=== PATIENT | male | born 1950 | race Caucasian/White ===

== ENCOUNTER → 2016-04-19 | Outpatient (CLI) | payer OTHER ==
[~2016-04-19] MED LIST: ASPI325T39 PO; ASPI81TA28 PO; CHOL1000 PO; CIME-56; CIPR-255 PO; CPR500; FESO8TAB PO; FINA5TAB PO; FLM4 PO; FLUO10CA48 PO; HYDR1SOL10 PO; KETO10TA; LOSA50TA6 PO; MELO7.5T5 PO; METO100T14; METO25TA56 PO; METO50TA16; METR-163; MULT-506 PO; NTRGSL/4 SL; OMEG10007 PO; OXYC-57 PO; SIMV20TA2; SIMV20TA2 PO; VITAMIN B12 PO; [UNRECOGNIZED DRUG - CODE] PO
--- NOTE | 2016-04-19 14:48 | DIAGNOSTIC IMAGING REPORT ---
KUB CLINICAL HISTORY: N20.0 [id number] COMPARISON STUDY: 11/18/2005 FINDINGS: There is no pathologic bowel dilatation. There is a 3 mm calcification projected over the lower pole the left kidney suspicious for a calculus. There is a mild lumbar scoliosis. Degenerative changes are present within the spine. IMPRESSION: Suspected 3 mm left renal calculus Electronically signed by: Marcos Llamas M.D. 04/19/2016 2:47 PM Dictated Date/Time: 04/19/2016 2:46 PM
== END | disposition home or self-care (01) ==
LOC: C.RADBC 13:54
PROVIDERS: ATTEND Nurse Practitioner Family
DX: N20.0 Calculus of kidney (principal)

== ENCOUNTER 2016-05-07 05:01 | Observation (INO) | payer OTHER ==
[2016-05-04 15:04] VITALS: BMI 29.0
--- NOTE | 2016-05-04 15:41 | PAT Medication Instructions ---
Service Date May 04, 2016. Current Home Medication List Aspirin (Aspirin Ec), 325 MG PO QAM Cholecalciferol (Vitamin D3), 1 TAB PO BID Fesoterodine Fumarate (Toviaz), 1 TAB PO QAM Finasteride (Proscar), 5 MG PO QPM Fish Oil ([place]-3), 1,000 MG PO BID Losartan Potassium (Cozaar), 50 MG PO QAM Meloxicam (Mobic), 7.5 MG PO BID Metoprolol Tartrate (Lopressor) (Lopressor), 12.5 MG PO BID Multivitamin (Multivitamin), 1 TAB PO QPM Nitroglycerin (Nitrostat), 0.4 MG SL UD PRN for RN Simvastatin (Zocor), 20 MG PO QAM [Vitamin B12], 1 TAB PO QPM Medication Instructions For Your Scheduled Surgery Aspirin (Aspirin Ec), 325 MG PO QAM (Check with surgeon/stem processing machine operator for instructions) Meloxicam (Mobic), 7.5 MG PO BID (check with surgeon for instructions) - Hold the following medications starting 05/04/16: Fish Oil ([place]-3), 1,000 MG PO BID - Hold the following medications the morning of surgery: Losartan Potassium (Cozaar), 50 MG PO QAM Cholecalciferol (Vitamin D3), 1 TAB PO BID Fesoterodine Fumarate (Toviaz), 1 TAB PO QAM - Take the following medications the morning of surgery with a sip of water: Simvastatin (Zocor), 20 MG PO QAM Nitroglycerin (Nitrostat), 0.4 MG SL UD PRN for RN Metoprolol Tartrate (Lopressor) (Lopressor), 12.5 MG PO BID - Take the following medications as scheduled the night before surgery: [Vitamin B12], 1 TAB PO QPM Nitroglycerin (Nitrostat), 0.4 MG SL UD PRN for RN Multivitamin (Multivitamin), 1 TAB PO QPM Metoprolol Tartrate (Lopressor) (Lopressor), 12.5 MG PO BID Finasteride (Proscar), 5 MG PO QPM Cholecalciferol (Vitamin D3), 1 TAB PO BID If you have any questions please call us at [phone] (Maye Mayer PA-C ) or [phone] or [phone]
[2016-05-04 16:08] LABS: BASO % 1.2 %; BASO ABS # 0.07 K/uL (0-0.2); COMPLETE YES; EOS % 9.7 %; HEMATOCRIT 41.6 % (42-52); IG% 0.2 %; LYMPH % 34.2 %; LYMPH ABS # 2.05 K/uL (1.2-3.4); MEAN CELL VOLUME 89.3 fL (80-100); MEAN CORPUSCULAR HEMOGLOBIN 30.5 pg (25-34); MEAN CORPUSCULAR HGB CONC 34.1 g/dl (32-36); MEAN PLATELET VOLUME 10.1 fL (7.4-10.4); MONO % 9.2 %; NEUT % 45.5 %; PLATELET COUNT 168 K/uL (130-400); RED BLOOD COUNT 4.66 M/uL (4.7-6.1); WHITE BLOOD COUNT 5.99 K/uL (4.8-10.8)
[2016-05-04 16:25] LABS: BUN/CREATININE RATIO 13.8 (10-20); CALCIUM 8.7 mg/dl (8.5-10.1); CREATININE 0.97 mg/dl (0.60-1.40); POTASSIUM 4.6 mmol/L (3.5-5.1)
--- NOTE | 2016-05-06 21:23 | HISTORY & PHYSICAL EXAMINATION ---
DATE OF ADMISSION: 05/07/2016 DIAGNOSIS: Septal deviation and obstructive sleep apnea. HISTORY OF PRESENT ILLNESS: This 66-year-old gentleman presented with history of severe sleep apnea. His respiratory distress index was 39.4. His lowest oxygen saturation was 87%. He was unable to wear CPAP because of nasal obstruction. PAST MEDICAL HISTORY: Medical problems; heart attack in May 2010, hypertension, hypercholesterolemia and sleep apnea. PREVIOUS SURGERIES: Back surgery and cardiac stents in 2010. MEDICATIONS: Metoprolol, simvastatin and losartan. Aspirin, which is being held. ALLERGIES: None known. FAMILY HISTORY: Negative. SOCIAL HISTORY: Negative. REVIEW OF SYSTEMS: Otherwise negative. PHYSICAL EXAMINATION: GENERAL: WNWD, male, 6 feet 1 inch, 225 pounds. HEAD: Normocephalic. EYES: Normal. EARS: Tympanic membranes intact. NOSE: Nasal passages; septal deviation to the right with turbinate hypertrophy. Pharynx, 3+ tonsillar hypertrophy. NECK: Supple. HEART: RRR. LUNGS: Clear. ABDOMEN: Soft. GENITOURINARY: Deferred. EXTREMITIES: Full range of motion. IMPRESSION: Septal deviation and obstructive sleep apnea. PLAN: Septoplasty with adenotonsillectomy, uvulopalatopharyngoplasty and somnoplasty of the tongue base.
[~2016-05-07] VITALS: Ht 185.4 cm; Wt 100.2 kg
[2016-05-07] VITALS (10 sets, daily range): BP systolic 156–201; BP diastolic 69–89; PULSE 43–63; TEMP 36.3–36.8; O2SAT 93–98; Ht 185.4 cm; Wt 100.2 kg
[~2016-05-07 05:01] MED LIST changes: -ASPI81TA28 PO; -CIME-56; -CIPR-255 PO; -CPR500; -FLM4 PO; -FLUO10CA48 PO; -HYDR1SOL10 PO; -KETO10TA; -METO100T14; -METO50TA16; -METR-163; -OXYC-57 PO; -SIMV20TA2; -[UNRECOGNIZED DRUG - CODE] PO
[2016-05-07] MEDS ORDERED: LACTATED RINGER'S 1000ML IV SCH (06:00)
[2016-05-07] MEDS ORDERED: CEFAZOLIN 2000 MG/60 ML D5W IV SCH (06:00)
[2016-05-07] MEDS ORDERED: LIDOCAINE HCL 2% 2 ML VIAL (20MG/ML) ONE (06:54)
[2016-05-07] MEDS ORDERED: MIDAZOLAM HCL 1 MG/ML 2ML VIAL ONE (06:54)
[2016-05-07] MEDS ORDERED: DEXAMETHASONE SOD INJ 4 MG/ML VIAL ONE (06:54)
[2016-05-07] MEDS ORDERED: FENTANYL CITRATE INJ 50 MCG/1 ML 2 ML VIAL ONE (06:54)
[2016-05-07] MEDS ORDERED: PROPOFOL IV EMULSION 10 MG/ML 20 ML VIAL IV ONE (06:54)
[2016-05-07] MEDS ORDERED: ONDANSETRON INJ 2 MG/ML 2 ML VIAL ONE (06:54)
--- NOTE | 2016-05-07 07:00 | History & Physical Bridge Note ---
H&P Re-Evaluation Bridge Note: I have examined the patient, reviewed the History & Physical and in the interval since the performance of the History & Physical I have noted the following changes of clinical significance: No changes noted
[2016-05-07] MEDS ORDERED: GLYCOPYRROLATE INJ 0.2 MG/ML VIAL ONE (07:52)
[2016-05-07] MEDS ORDERED: ROCURONIUM BROMIDE 10 MG/ML 5 ML VIAL ONE (07:52)
[2016-05-07] MEDS ORDERED: LARYING-O-JET KIT (LTA) EXT ONE ×2 (07:52)
[2016-05-07] MEDS ORDERED: NEOSTIGMINE METHYLSULFATE 5 MG/5 ML SYR ONE (07:52)
[2016-05-07] MEDS ORDERED: ARTIFICIAL TEARS OP OINT 3.5 GM TUBE ONE (07:52)
[2016-05-07] MEDS ORDERED: MUPIROCIN 2% OINT 22 GM TUBE TOP ONE (08:06)
[2016-05-07] MEDS ORDERED: GELATIN SPONGE 12-7MM TOP ONE (08:06)
[2016-05-07] MEDS ORDERED: MIX: 4% LIDOCAINE 4ML W/1 ML EPI 1:1000 TOP ONE (08:08)
[2016-05-07] MEDS ORDERED: BUPIVACAINE/EPINEPHRINE 0.5% MPF 1:200,000 30 ML VIAL INJ ONE (08:31)
[2016-05-07] MEDS ORDERED: HYDROCODONE/APAP 2.5MG/108MG ELIX 5 ML UDP PO PRN (09:00)
[2016-05-07] MEDS ORDERED: ONDANSETRON INJ 2 MG/ML 2 ML VIAL IV PRN ×3 (09:00→09:30)
[2016-05-07] MEDS ORDERED: MoRPHine SULFATE 2 MG/ML CARP IV PRN (09:00)
[2016-05-07] MEDS ORDERED: HydrALAZINE HCL 20 MG/ML VIAL ONE (09:22)
[2016-05-07] MEDS ORDERED: HydrALAZINE HCL 20 MG/ML VIAL IV. STA (09:25)
[2016-05-07] MEDS ORDERED: EpHEDrine SULFATE INJ 50 MG/ML AMP IV PRN (09:30)
[2016-05-07] MEDS ORDERED: FENTANYL CITRATE INJ 50 MCG/1 ML 2 ML VIAL IV PRN (09:30)
[2016-05-07] MEDS ORDERED: ATROPINE SULFATE 0.1 MG/ML 5ML SYR IV PRN (09:30)
--- NOTE | 2016-05-07 09:31 | OPERATIVE REPORT ---
DATE OF OPERATION: 05/07/2016 PREOPERATIVE DIAGNOSES: Obstructive sleep apnea, septal deviation. POSTOPERATIVE DIAGNOSES: Same. PROCEDURE: Septoplasty with tonsillectomy and uvulopalatopharyngoplasty and radiofrequency volume reduction of the tongue base. SURGEON: Dr. Paulson. ANESTHESIA: General endotracheal. COMPLICATIONS: None. BLOOD LOSS: 30 mL HISTORY: This 66-year-old gentleman presented with significant obstructive sleep apnea with RDI of 39.4, lowest oxygen saturation of 87%. He has difficulty wearing CPAP because of the nasal obstruction. He also has significant adenotonsillar hypertrophy and requested definitive treatment. DESCRIPTION OF PROCEDURE: The patient was brought to the operating room and placed in supine position. General endotracheal anesthesia was induced. Prepped and draped in the usual sterile manner. The radiofrequency volume reduction of the tongue base was performed with [employer] machine creating 7 double prong lesions in the rapid lesion mode with the setting at 600 joules. Seven lesions were created across the tongue base posteriorly. The nose was decongested using topical cottonoids with a solution of 4 mL of 4% Xylocaine mixed with 1 mL of epinephrine. Injection of 0.5% Sensorcaine with 1:200,000 strength epinephrine was also used. The left hemitransfixion incision was made and mucoperichondrium was elevated off the left side of the septum. Posteriorly, the cartilage was from the perpendicular plate of ethmoid and inferiorly from the vomer maxillary crest. Bilateral inferior tunnels were elevated and then bilateral posterior tunnels were elevated, isolating a large bony cartilaginous spur inferiorly which was trimmed using 15 blade and the Tejinder-Garcia rongeurs. There was also a large bony spur projecting to the left posteriorly. This was removed using the Tejinder-Gracia rongeurs and the Anthony forceps superiorly. The deviated portion of the perpendicular plate of the ethmoid was removed in small pieces using the Tejinder-Garcia rongeur. The caudal end of the septum also had to be straightened because there was an acute angulation to the right. This was straightened using the cartilage carving technique. The septum was closed using continuous mattress suture of 4-0 plain gut. Anterior packing of Gelfoam was placed on the left side. The mouth gag was placed. Peritonsillar area injected with 0.5% Sensorcaine with 1:200,000 strength epinephrine. Tonsillectomies were performed using the plasma knife. Inspection of the adenoid showed minimal adenoid tissue. Uvulopalatoplasty was performed using #12 blade, resecting a portion of the soft palate along with the anterior surface of the uvula, trimming the uvula to its tip but preserving the tip of the uvula. The uvula was sewn up on itself. Palatoglossal flap was created by a V cut using the Metzenbaum scissors superiorly. The palatopharyngeal fold was swung up superiorly into the V cut. All the mucosal edges were closed using 2-0 chromic sutures continuously interlocking manner on the left side and then the same suture on the right side. This was tied up at the uvula which was sewn up to the soft palate in the midline. The pharynx was irrigated clean with saline. The patient tolerated the procedure well and was taken to recovery area in satisfactory condition. I attest to the content of the Intraoperative Record and any orders documented therein. Any exceptions are noted below. HAYLEY
--- NOTE | 2016-05-07 09:54 | Anesthesiology Progress Note ---
Anesthesia Post Op Note Date & Time May 07, 2016 at 09:53 Vital Signs Pain Intensity: 3 Vital Signs Past 12 Hours Date Time Temp Pulse Resp B/P Pulse Ox O2 Delivery O2 Flow Rate FiO2 05/07/16 09:33 142/71 05/07/16 09:32 42 9 96 05/07/16 09:32 43 9 05/07/16 09:28 153/78 05/07/16 09:27 41 13 05/07/16 09:27 41 13 97 05/07/16 09:24 160/80 05/07/16 09:22 35 15 05/07/16 09:22 35 15 97 05/07/16 09:18 193/84 05/07/16 09:17 41 13 176/89 98 05/07/16 09:17 39 13 05/07/16 09:13 207/96 05/07/16 09:12 43 14 05/07/16 09:12 43 14 191/91 100 05/07/16 09:02 36.6 40 16 191/91 100 Mask 10 05/07/16 09:00 36.6 48 16 183/90 100 Mask 10 05/07/16 05:55 36.6 43 18 201/88 98 Room Air Notes Mental Status: alert / awake / arousable, participated in evaluation Pt Amnestic to Procedure: Yes Nausea / Vomiting: adequately controlled Pain: adequately controlled Airway Patency, RR, SpO2: stable & adequate BP & HR: stable & adequate Hydration State: stable & adequate Anesthetic Complications: no major complications apparent Pt did receive one dose of hydralazine 10mg IV in pacu for BP 190s/90s. He was asymptomatic with this blood pressure. On dispo from recovery his BP was 150s/ 80s.
[2016-05-07] MEDS ORDERED: IV FLUIDS COMPLETED PRN (10:00)
[2016-05-07] MEDS: ACETAMINOPHEN SOLN 650MG/20.3 ML UDC PO PRN (10:34)
[2016-05-07] MEDS: D5W AND 1/2NSS + 20MEQ KCL 1,000 ML IV SCH ×2 (13:09→22:39)
[2016-05-07] MEDS: ACETAMINOPHEN/HYDROCODONE ELIX 15 ML/CUP UDP PO PRN (13:12)
[2016-05-07] MEDS: CEFAZOLIN IV 1,000 MG in DEXTROSE 5% 50ML 50 ML IV SCH ×2 (14:32→22:39)
[2016-05-07] MEDS: MoRPHine SULFATE 4 MG/ML 1 ML CARP\\VIAL IV PRN ×2 (15:46→20:45)
[2016-05-08 03:38] VITALS: BP 152/73; PULSE 57; TEMP 36.6; O2SAT 95
[2016-05-08] MEDS: MoRPHine SULFATE 4 MG/ML 1 ML CARP\\VIAL IV PRN (06:20)
[2016-05-08] MEDS: CEFAZOLIN IV 1,000 MG in DEXTROSE 5% 50ML 50 ML IV SCH (06:20)
[2016-05-08] MEDS: ACETAMINOPHEN SOLN 650MG/20.3 ML UDC PO PRN (06:20)
[2016-05-08 07:03] VITALS: BP_SYST 152; BP_SYST 160; BP_DIAS 72; BP_DIAS 73; PULSE 52; TEMP 36.7; O2SAT 95
[2016-05-08] MEDS: D5W AND 1/2NSS + 20MEQ KCL 1,000 ML IV SCH (07:41)
[2016-05-08 07:52] VITALS: BP 157/70; PULSE 60; TEMP 37.1; O2SAT 93
[2016-05-08 07:57] VITALS: O2SAT 93
[2016-05-08] MEDS ORDERED: HYDR1SOL10 PO (09:21)
[2016-05-08] MEDS ORDERED: OXYC-57 PO (09:21)
[2016-05-08] MEDS ORDERED: [UNRECOGNIZED DRUG - CODE] PO (09:21)
--- NOTE | 2016-05-08 09:25 | Discharge Instructions ---
Discharge Instructions Admission Reason for Admission: Sleep Apnea Discharge Discharge Diagnosis / Problem: same Discharge Goals Goal(s): Improve function Activity Recommendations Activity Limitations: per Instructions/Follow-up section Lifting Limitations: gradually increase as tolerated Exercise/Sports Limitations: as tolerated May Resume Sexual Activity: when tolerated Shower/Bathe: no limitations Driving or Machine Use: resume 3 days after discharge do not drive on narcotic pain meds . Instructions / Follow-Up Instructions / Follow-Up ACTIVITY RECOMMENDATIONS: * During the first few days, activities should be limited. * Stay indoors for several days. * After 48 hours, activity can gradually be increased to normal activity. RETURN TO SCHOOL/WORK: * Return to school or work in one week. * No physical education for two weeks. OVER THE COUNTER MEDICATIONS: * You may use Tylenol * Avoid aspirin or aspirin containing products, e.g. as they may increase bleeding. SPECIAL CARE INSTRUCTIONS: * Avoid coughing or clearing the throat. * Do not use a straw. * A sore throat is expected frequently accompanied by pain radiating to the ears. This is normal. * Expect bad breath until "scabs" are healed. * Notify the doctor if bleeding occurs, vomiting, temperature greater than 101 degrees Fahrenheit. Call or cell phone: . * If bleeding occurs, it is usually in the first 24 hours or after the 5th day. If unable to reach the doctor, go to the nearest Emergency Department. Special Diet: * Fluids are very important and should be encouraged to maintain adequate hydration. * To maintain nutrition, eat soft foods and after 48 hours the consistency of foods can be increased. Examples are jello, soup, pasta, ice cream and mashed foods. FOLLOW UP VISIT: Follow-up visit with Dr. Paulson in 2 weeks. Please call to schedule if not already scheduled.ACTIVITY RECOMMENDATIONS: * Being up and around is good, but no strenuous activity, heavy lifting or physical exertion for one week. * Keep your head elevated 30 degrees when lying down or sleeping. OVER THE COUNTER MEDICATIONS: * You may use Tylenol * Avoid aspirin or aspirin containing products, e.g. as they may increase bleeding. SPECIAL CARE INSTRUCTIONS: * Expect to have bloody drainage from your nose and/or down your throat for one to three days. Change drip pad as needed. * Begin irrigating your nose with saline solution today, at least six to ten times per day and sniff back to help remove old clots or crust. * You may experience nasal and facial congestion, pain and pressure, this is normal. * Please call with any significant and/or progressive pain, redness, swelling around the eyes, visual changes, fever of 101.5 degrees F, active bleeding or any problems or concerns. * If active bleeding occurs, spray the nose three times at one minute intervals with Afrin spray and call or cell phone: . If unable to reach the doctor, go to the nearest Emergency Department. Special Diet: * Avoid extremely hot fluids. FOLLOW UP VISIT: Follow-up Visit with Dr. Paulson If not already scheduled, please call to schedule. Current Hospital Diet Patient's current hospital diet: Full Liquid Diet Discharge Diet Recommended Diet: Regular Diet Diet Texture: Mechanical Soft (ground) Procedures Procedures Performed: Septoplasty, Bilateral Tonsillectomy, Uvulopalatalpharyngoplasty, Somnoplasty of Tongue Pending Studies Studies pending at discharge: no Medical Emergencies . Who to Call and When: Medical Emergencies: If at any time you feel your situation is an emergency, please call 911 immediately. . Non-Emergent Contact Non-Emergency issues call your: Primary Care Provider . "Provider Documentation" section prepared by Antonieta Paulson. VTE Core Measure Inpt VTE Proph given/why not?: [facility] [place] Drug Monitoring Program Search Results: no issues identified
[2016-05-08 09:33] VITALS: BP 157/70; PULSE 60; TEMP 37.1; O2SAT 93
[2016-05-08] MEDS: ACETAMINOPHEN/HYDROCODONE ELIX 15 ML/CUP UDP PO PRN (10:30)
[2016-05-08 10:52] VITALS: BP 149/78; PULSE 52; TEMP 36.4; O2SAT 94
--- NOTE | 2016-05-17 12:53 | DISCHARGE SUMMARY ---
DIAGNOSIS: Obstructive sleep apnea. HISTORY OF PRESENT ILLNESS: A 66-year-old gentleman with significant sleep apnea, unable to tolerate CPAP, requested definitive treatment. HOSPITAL COURSE: The patient was admitted and taken to the operating room on 05/07, where he underwent septoplasty and then tonsillectomy and also uvulopalatopharyngoplasty. He also had radiofrequency volume reduction of the tongue base without complications. He was observed in the recovery room and then transferred to the floor for observation. Postoperatively, the patient did well with minimal swelling and was able to breathe through his nose. He was discharged on 05/08 with instructions and also instructed to return for followup in my office in 2 weeks.
[2016-09-08] MEDS ORDERED: VITAMIN B12 PO (12:37)
[2016-09-08] MEDS ORDERED: FLM4 PO (12:37)
[2016-09-08] MEDS ORDERED: FLUO10CA48 PO (16:49)
[2016-09-24] MEDS ORDERED: CIPR-255 PO (08:29)
== END 2016-05-08 11:35 | disposition home or self-care (01) ==
LOC: ENRESERVTM → ENRESERVDT → C.ACU 05:01 → C.MSN 08:59
PROVIDERS: ADMIT Otolaryngology; ATTEND Otolaryngology
DX: G47.33 Obstructive sleep apnea (adult) (pediatric) (principal); J34.2 Deviated nasal septum; I10 Essential (primary) hypertension; E78.00 Pure hypercholesterolemia, unspecified; I25.2 Old myocardial infarction; Z79.82 Long term (current) use of aspirin

== ENCOUNTER 2016-09-23 06:54 | Observation (INO) | payer OTHER ==
[2016-09-08 12:41] VITALS: BMI 29.0
--- NOTE | 2016-09-08 13:18 | PAT Medication Instructions ---
Service Date September 08, 2016. Current Home Medication List Aspirin (Aspirin Ec), 325 MG PO QAM Cholecalciferol (Vitamin D3), 1 TAB PO QAM Finasteride (Proscar), 5 MG PO QPM Fish Oil ([place]-3), 1,000 MG PO BID Losartan Potassium (Cozaar), 50 MG PO QAM Meloxicam (Mobic), 7.5 MG PO QPM Metoprolol Tartrate (Lopressor) (Lopressor), 12.5 MG PO BID Multivitamin (Multivitamin), 1 TAB PO QPM Nitroglycerin (Nitrostat), 0.4 MG SL UD PRN for RN Simvastatin (Zocor), 20 MG PO QAM Tamsulosin HCl (Tamsulosin HCl), 0.4 MG PO QPM [Vitamin B12], 1 TAB PO QPM Medication Instructions For Your Scheduled Surgery - Check with surgeon/prescribing physician for instructions: Aspirin (Aspirin Ec), 325 MG PO QAM - Check with surgeon for instructions: Meloxicam (Mobic), 7.5 MG PO QPM - Hold the following medications 2 weeks prior to surgery: Fish Oil ([place]-3), 1,000 MG PO BID - Hold the following medications the morning of surgery: Multivitamin (Multivitamin), 1 TAB PO QPM Losartan Potassium (Cozaar), 50 MG PO QAM Cholecalciferol (Vitamin D3), 1 TAB PO QAM - Take the following medications the morning of surgery with a sip of water: Simvastatin (Zocor), 20 MG PO QAM Metoprolol Tartrate (Lopressor) (Lopressor), 12.5 MG PO BID Nitroglycerin (Nitrostat), 0.4 MG SL UD PRN for RN (if needed) - Take the following medications as scheduled the night before surgery: [Vitamin B12], 1 TAB PO QPM Tamsulosin HCl (Tamsulosin HCl), 0.4 MG PO QPM Metoprolol Tartrate (Lopressor) (Lopressor), 12.5 MG PO BID Finasteride (Proscar), 5 MG PO QPM Nitroglycerin (Nitrostat), 0.4 MG SL UD PRN for RN (if needed) If you have any questions please call us at [phone] or [phone] or [phone]
[2016-09-08 13:20] LABS: URINE APPEARANCE CLEAR (CLEAR); URINE BILIRUBIN NEG (NEG); URINE NITRITE NEG (NEG); URINE PH 5.5 (4.5-7.5); URINE SPECIFIC GRAVITY 1.018 (1.000-1.030); UROBILINOGEN NEG (NEG)
[2016-09-08 13:40] LABS: MANUAL MICROSCOPIC REQUIRED? NO; REVIEW REQ? NO
[2016-09-08 13:42] LABS: URINE COLOR YELLOW
[2016-09-08 13:51] LABS: BASO % 0.3 %; BASO ABS # 0.02 K/uL (0-0.2); COMPLETE YES; EOS % 4.5 %; HEMATOCRIT 37.4 % (42-52); IG% 0.2 %; LYMPH % 32.5 %; LYMPH ABS # 1.88 K/uL (1.2-3.4); MEAN CELL VOLUME 92.8 fL (80-100); MEAN CORPUSCULAR HGB CONC 33.4 g/dl (32-36); MEAN PLATELET VOLUME 10.1 fL (7.4-10.4); MONO % 9.3 %; NEUT % 53.2 %; PLATELET COUNT 165 K/uL (130-400); RED BLOOD COUNT 4.03 M/uL (4.7-6.1); WHITE BLOOD COUNT 5.79 K/uL (4.8-10.8)
[2016-09-08 14:47] LABS: BUN/CREATININE RATIO 10.2 (10-20); CALCIUM 8.3 mg/dl (8.5-10.1); CREATININE 0.94 mg/dl (0.60-1.40); POTASSIUM 4.1 mmol/L (3.5-5.1)
[~2016-09-23] VITALS: Ht 185.4 cm; Wt 99.4 kg
[2016-09-23] VITALS (12 sets, daily range): BP systolic 142–171; BP diastolic 66–84; PULSE 44–62; TEMP 36.4–36.8; O2SAT 92–98; Ht 185.4 cm; Wt 99.4 kg
[~2016-09-23 06:54] MED LIST changes: +CIPROFLOXACIN / D5W 400 MG IV SCH; -FESO8TAB PO; +FLM4 PO; +FLUO10CA48 PO; +LACTATED RINGER'S 1000ML 1,000 ML IV SCH
[2016-09-23] MEDS ORDERED: ASPI81TA28 PO (07:18)
[2016-09-23] MEDS ORDERED: MIDAZOLAM HCL 1 MG/ML 2ML VIAL ONE (07:54)
[2016-09-23] MEDS ORDERED: ONDANSETRON INJ 2 MG/ML 2 ML VIAL ONE (07:54)
[2016-09-23] MEDS ORDERED: LIDOCAINE HCL 2% 2 ML VIAL (20MG/ML) ONE (07:54)
[2016-09-23] MEDS ORDERED: DEXAMETHASONE SOD INJ 4 MG/ML VIAL ONE (07:54)
[2016-09-23] MEDS ORDERED: FENTANYL CITRATE INJ 50 MCG/1 ML 2 ML VIAL ONE (07:54)
[2016-09-23] MEDS ORDERED: PROPOFOL IV EMULSION 10 MG/ML 20 ML VIAL IV ONE (07:54)
[2016-09-23] MEDS ORDERED: MoRPHine SULFATE 2 MG/ML CARP ONE ×2 (09:14→09:15)
--- NOTE | 2016-09-23 09:37 | [facility] Post Operative Brief Note ---
Immediate Operative Summary Operative Date Sep 23, 2016. Pre-Operative Diagnosis Benign Prostactic Hyperplasia with Obstruction Post-Operative Diagnosis Benign Prostactic Hyperplasia with Obstruction Procedure(s) Performed Cystoscopy; TURP Surgeon Dr. Anitra Palafox Learning Designer Surgeon(s) none Estimated Blood Loss 5 cc Findings Bilobar hypertrophy with a high median bar, but no pedunculated median lobe. Specimens none per surgeon Drains [id number] guerra Anesthesia Gen Complication(s) None Disposition Recovery Room / PACU (stable)
[2016-09-23] MEDS ORDERED: ACETAMINOPHEN/CODEINE 300/30MG TAB PO PRN (09:45)
[2016-09-23] MEDS ORDERED: ONDANSETRON INJ 2 MG/ML 2 ML VIAL IV PRN ×2 (09:45→10:00)
[2016-09-23] MEDS ORDERED: ACETAMINOPHEN 325 MG TAB PO PRN (09:45)
[2016-09-23] MEDS ORDERED: NITROGLYCERIN 0.4 MG SL PER TAB CHARGE SL PRN (09:45)
[2016-09-23] MEDS ORDERED: PROMETHAZINE HCL INJ 12.5 MG in SODIUM CHLORIDE 0.9% 50ML 50 ML IV PRN (10:00)
[2016-09-23] MEDS ORDERED: EpHEDrine SULFATE INJ 50 MG/ML AMP IV PRN (10:00)
[2016-09-23] MEDS ORDERED: NALOXONE HCL 0.4 MG/1 ML VIAL/CARP IV PRN (10:00)
[2016-09-23] MEDS ORDERED: LABETALOL HCL IV 5 MG/ML 20ML IV PRN (10:00)
[2016-09-23] MEDS ORDERED: FLUMAZENIL 0.1 MG/1 ML 10 ML VIAL IV PRN (10:00)
[2016-09-23] MEDS ORDERED: ATROPINE SULFATE 0.1 MG/ML 5ML SYR IV PRN (10:00)
[2016-09-23] MEDS ORDERED: FENTANYL CITRATE INJ 50 MCG/1 ML 2 ML VIAL IV PRN (10:00)
--- NOTE | 2016-09-23 10:19 | Anesthesiology Progress Note ---
Anesthesia Post Op Note Date & Time Sep 23, 2016 at 10:18 Vital Signs Pain Intensity: 0 Vital Signs Past 12 Hours Date Time Temp Pulse Resp B/P (MAP) Pulse Ox O2 Delivery O2 Flow Rate FiO2 09/23/16 10:10 51 10 153/79 97 Nasal Cannula 2 09/23/16 10:00 57 14 160/85 97 Mask 10 09/23/16 09:50 58 16 159/79 100 Mask 10 09/23/16 09:40 36.6 60 16 165/87 97 Mask 10 09/23/16 07:24 36.5 44 20 154/77 (102) 97 Room Air Notes Mental Status: alert / awake / arousable, participated in evaluation Pt Amnestic to Procedure: Yes Nausea / Vomiting: adequately controlled Pain: adequately controlled Airway Patency, RR, SpO2: stable & adequate BP & HR: stable & adequate Hydration State: stable & adequate Anesthetic Complications: no major complications apparent
[2016-09-23] MEDS ORDERED: IV FLUIDS COMPLETED PRN (11:45)
[2016-09-23] MEDS: LACTATED RINGER'S 1000ML 1,000 ML IV SCH ×2 (11:56→17:40)
--- NOTE | 2016-09-23 12:25 | OPERATIVE REPORT ---
DATE OF OPERATION: 09/23/2016 PREOPERATIVE DIAGNOSIS: Benign prostatic hypertrophy. POSTOPERATIVE DIAGNOSIS: Benign prostatic hypertrophy. PROCEDURES PERFORMED: Cystoscopy and transurethral resection of prostate. ANESTHESIA: General. ESTIMATED BLOOD LOSS: 5 mL. URINE OUTPUT: Not recorded. SPECIMENS: There were no specimens. DRAINS: 22-Marshallese Li catheter. DESCRIPTION OF THE PROCEDURE: Oniel Gonzalez was identified in the preoperative holding area. Appropriate informed consents were reviewed and completed and the patient was transported to the operating suite. Upon arrival, he received appropriate preoperative antibiotics in the form of ciprofloxacin. Adequate general anesthesia was achieved. He was placed in dorsal lithotomy position, where he was sterilely prepped and draped in standard fashion. I began the case by passing a 24-Marshallese resectoscope with visual obturator. Inspection revealed no evidence of stricture disease and the prostate was noted to have significant lateral lobe hypertrophy as well as a somewhat high bladder neck and small median bar, but no true intravesical or pedunculated median lobe. Inspection of the bladder revealed ureteral orifices to be in orthotopic position and no evidence of mucosal disease. Following my inspection, I exchanged the visual obturator for resecting element and a button electrode. I performed an incision of the prostate at the bladder neck in a line directed from each ureteral orifice back towards the verumontanum. This dropped the bladder neck considerably and in turn better clarified the median bar. I was able to resect this median bar completely and created a flush posterior bladder neck. I then proceeded to resect the left lateral lobe followed by the right lateral lobe and ultimately very carefully trimmed the area around the apex of the prostate. At the conclusion of the case, there was excellent hemostasis as well as a widely patent prostatic urethra. I left the bladder full, withdrew the scope and placed a 22-Marshallese Li catheter without difficulty. The patient tolerated the procedure extremely well, was extubated and taken to the PACU in stable condition. I attest to the content of the Intraoperative Record and any orders documented therein. Any exception s are noted below.
[2016-09-23] MEDS ORDERED: NURSING VERBAL MED ORDER ONE (13:15)
[2016-09-23] MEDS ORDERED: PHENAZOPYRIDINE HCL 200 MG TAB PO PRN (13:15)
[2016-09-23] MEDS ORDERED: MELOXICAM 7.5 MG TAB PO SCH (21:00)
[2016-09-23] MEDS ORDERED: MULTIVITAMIN TAB PO SCH (21:00)
[2016-09-23] MEDS: METOPROLOL TARTRATE 25 MG TAB PO SCH (21:11)
[2016-09-24 03:18] VITALS: BP 157/70; PULSE 53; TEMP 36.7; O2SAT 95
[2016-09-24] MEDS: LACTATED RINGER'S 1000ML 1,000 ML IV SCH (03:32)
[2016-09-24 06:56] VITALS: BP 164/74; PULSE 61; TEMP 36.7; O2SAT 96
[2016-09-24 07:27] LABS: BASO % 0.1 %; BASO ABS # 0.01 K/uL (0-0.2); COMPLETE YES; EOS % 0.3 %; HEMATOCRIT 40.3 % (42-52); IG% 0.3 %; LYMPH % 13.5 %; LYMPH ABS # 1.57 K/uL (1.2-3.4); MEAN CELL VOLUME 92.2 fL (80-100); MEAN CORPUSCULAR HEMOGLOBIN 29.3 pg (25-34); MEAN CORPUSCULAR HGB CONC 31.8 g/dl (32-36); MEAN PLATELET VOLUME 10.1 fL (7.4-10.4); MONO % 8.8 %; PLATELET COUNT 176 K/uL (130-400); RED BLOOD COUNT 4.37 M/uL (4.7-6.1); WHITE BLOOD COUNT 11.62 K/uL (4.8-10.8)
[2016-09-24 08:03] LABS: BUN/CREATININE RATIO 15.7 (10-20); CALCIUM 8.6 mg/dl (8.5-10.1); CREATININE 0.96 mg/dl (0.60-1.40); POTASSIUM 4.2 mmol/L (3.5-5.1)
[2016-09-24] MEDS ORDERED: CIPR-255 PO (08:29)
--- NOTE | 2016-09-24 08:29 | Progress Note ---
Progress Note Date of Service Sep 24, 2016. Progress Note Doing very well - urine cleared overnight - no discomfort - enjoying his breakfast 09/24/16 06:21 Red Blood Count 4.37, Mean Corpuscular Volume 92.2, Mean Corpuscular Hemoglobin 29.3, Mean Corpuscular Hemoglobin Concent 31.8, Mean Platelet Volume 10.1, Neutrophils (%) (Auto) 77.0, Lymphocytes (%) (Auto) 13.5, Monocytes (%) (Auto) 8.8, Eosinophils (%) (Auto) 0.3, Basophils (%) (Auto) 0.1, Neutrophils # (Auto) 8.96, Lymphocytes # (Auto) 1.57, Monocytes # (Auto) 1.02, Eosinophils # (Auto) 0.03, Basophils # (Auto) 0.01 09/24/16 06:21 Test 09/24/16 06:21 White Blood Count 11.62 K/uL (4.8-10.8) Red Blood Count 4.37 M/uL (4.7-6.1) Hemoglobin 12.8 g/dL (14.0-18.0) Hematocrit 40.3 % (42-52) Mean Corpuscular Volume 92.2 fL (80-100) Mean Corpuscular Hemoglobin 29.3 pg (25-34) Mean Corpuscular Hemoglobin Concent 31.8 g/dl (32-36) Platelet Count 176 K/uL (130-400) Mean Platelet Volume 10.1 fL (7.4-10.4) Neutrophils (%) (Auto) 77.0 % Lymphocytes (%) (Auto) 13.5 % Monocytes (%) (Auto) 8.8 % Eosinophils (%) (Auto) 0.3 % Basophils (%) (Auto) 0.1 % Neutrophils # (Auto) 8.96 K/uL (1.4-6.5) Lymphocytes # (Auto) 1.57 K/uL (1.2-3.4) Monocytes # (Auto) 1.02 K/uL (0.11-0.59) Eosinophils # (Auto) 0.03 K/uL (0-0.5) Basophils # (Auto) 0.01 K/uL (0-0.2) RDW Standard Deviation 45.2 fL (36.4-46.3) RDW Coefficient of Variation 13.3 % (11.5-14.5) Immature Granulocyte % (Auto) 0.3 % Immature Granulocyte # (Auto) 0.03 K/uL (0.00-0.02) Anion Gap 8.0 mmol/L (3-11) Est Creatinine Clear Calc Drug Dose 91.3 ml/min Estimated GFR () 93.8 Estimated GFR (Non- 80.9 BUN/Creatinine Ratio 15.7 (10-20) Calcium Level 8.6 mg/dl (8.5-10.1) Vital Signs Past 12 Hours Date Time Temp Pulse Resp B/P (MAP) Pulse Ox O2 Delivery O2 Flow Rate FiO2 09/24/16 07:05 Room Air 09/24/16 06:56 36.7 61 17 164/74 (104) 96 Room Air 09/24/16 03:18 36.7 53 16 157/70 (99) 95 Room Air 09/23/16 23:50 142/68 (92) 09/23/16 23:21 Room Air 09/23/16 22:58 36.7 59 16 165/77 (106) 92 Room Air 09/23/16 21:07 61 144/66 (92) NAD AAOx3 no resp distress RRR abd soft non-tender urine clear A/P: POD#1 s/p TURP - voiding trial now - d/c home after void
--- NOTE | 2016-09-24 08:30 | Discharge Instructions ---
Discharge Instructions Date of Service Sep 24, 2016. Admission Reason for Admission: Benign Prostatic Hyperplasia Discharge Discharge Diagnosis / Problem: BPH Discharge Goals Goal(s): Decrease discomfort, Improve function, Increase independence, Improve disease control, Prevent Disease Progression Activity Recommendations Activity Limitations: resume your previous activity Lifting Limitations: no more than 25 pounds Exercise/Sports Limitations: as tolerated May Resume Sexual Activity: after one week Shower/Bathe: no limitations Driving or Machine Use: no limitations . Instructions / Follow-Up Instructions / Follow-Up Please stay well hydrated Please keep your previously scheduled follow up appointment with Dr[facility] Diet(s): Regular Diet Discharge Diet Recommended Diet: Regular Diet Procedures Procedures Performed: Cystoscopy; TURP Pending Studies Studies pending at discharge: no Medical Emergencies . Who to Call and When: Medical Emergencies: If at any time you feel your situation is an emergency, please call 911 immediately. . Non-Emergent Contact Non-Emergency issues call your: Urologist Call Non-Emergent contact if: you have a fever, temperature is above 101.5, your pain is not controlled, your pain is worsening . . "Provider Documentation" section prepared by Eber Melgoza. . VTE Core Measure Inpt VTE Proph given/why not?: Treatment not indicated
--- NOTE | 2016-09-24 08:37 | Anesthesiology Progress Note ---
Anesthesia Post Op Note Date & Time Sep 24, 2016 at 08:36 Vital Signs Pain Intensity: 0.0 Vital Signs Past 12 Hours Date Time Temp Pulse Resp B/P (MAP) Pulse Ox O2 Delivery O2 Flow Rate FiO2 09/24/16 07:05 Room Air 09/24/16 06:56 36.7 61 17 164/74 (104) 96 Room Air 09/24/16 03:18 36.7 53 16 157/70 (99) 95 Room Air 09/23/16 23:50 142/68 (92) 09/23/16 23:21 Room Air 09/23/16 22:58 36.7 59 16 165/77 (106) 92 Room Air 09/23/16 21:07 61 144/66 (92) Notes Mental Status: alert / awake / arousable, participated in evaluation Pt Amnestic to Procedure: Yes Nausea / Vomiting: adequately controlled Pain: adequately controlled Airway Patency, RR, SpO2: stable & adequate BP & HR: stable & adequate Hydration State: stable & adequate Anesthetic Complications: no major complications apparent
[2016-09-24] MEDS ORDERED: LOSARTAN POTASSIUM 50 MG TAB PO SCH (09:00)
[2016-09-24] MEDS ORDERED: FLUOXETINE HCL 10 MG CAP PO SCH (09:00)
[2016-09-24] MEDS ORDERED: SIMVASTATIN 20 MG TAB PO SCH (09:00)
[2016-09-24] MEDS ORDERED: ASPIRIN 81 MG ECTAB PO SCH (09:00)
[2016-09-24] MEDS: METOPROLOL TARTRATE 25 MG TAB PO SCH (09:05)
[2016-09-24 10:33] VITALS: BP 164/74; PULSE 61; TEMP 36.7; O2SAT 96
--- NOTE | 2016-09-28 11:57 | Discharge Summary ---
Discharge Summary Date of Service Sep 28, 2016. Discharge Summary Admission Date: Sep 23, 2016 at 09:49 Discharge Date: Sep 24, 2016 Discharge Disposition: Home Principal Diagnosis: BPH Procedures: TURP Medication Reconciliation New Medications: Ciprofloxacin Hcl (Cipro) 500 Mg Tab 500 MG PO BID, #6 TAB Continued Medications: Aspirin (Aspirin Ec) 81 Mg Tab 81 MG PO DAILY Cholecalciferol (Vitamin D3) 1,000 Unit Tab 1 TAB PO QAM for 90 Days, #90 TAB 3 Refills Fish Oil (Empire-3) 1 Ea Cap 1000 MG PO BID, CAP Fluoxetine (Prozac) 10 Mg Cap 10 MG PO QAM, CAP Losartan Potassium (Cozaar) 50 Mg Tab 50 MG PO QAM, TAB Meloxicam (Mobic) 7.5 Mg Tab 7.5 MG PO QPM, TAB Metoprolol Tartrate (Lopressor) (Lopressor) 25 Mg Tab 12.5 MG PO BID, TAB Multivitamin (Multivitamin) Tab 1 TAB PO QPM, TAB Nitroglycerin (Nitrostat) 0.4 Mg Tab 0.4 MG SL UD PRN for RN, BTL Simvastatin (Zocor) 20 Mg Tab 20 MG PO QAM, TAB [Vitamin B12] () 1 TAB PO QPM Discontinued Medications: Finasteride (Proscar) 5 Mg Tab 5 MG PO QPM, TAB Tamsulosin HCl (Tamsulosin HCl) 0.4 Mg Cap 0.4 MG PO QPM Hospital Course Admitted for TURP. Details as dictated previously in the operative report. In summary, he tolerated the procedure very well. He passed a voiding trial on the morning of post operative day #1 and was discharged in stable condition. Total time spent on discharge = This includes examination of the patient, discharge planning, medication reconciliation, and communication with other providers. Discharge Instructions please see previously written discharge instructions
== END 2016-09-24 11:37 | disposition home or self-care (01) ==
LOC: C.ACU 06:54 → C.MSW 09:49 → ENRESERV 10:28
PROVIDERS: ADMIT Urology; ATTEND Urology
DX: N40.1 Benign prostatic hyperplasia with lower urinary tract symptoms (principal); N13.8 Other obstructive and reflux uropathy; N20.0 Calculus of kidney; R35.0 Frequency of micturition; R33.9 Retention of urine, unspecified; E78.5 Hyperlipidemia, unspecified; Z87.442 Personal history of urinary calculi; I25.2 Old myocardial infarction; F32.9 Major depressive disorder, single episode, unspecified; G47.33 Obstructive sleep apnea (adult) (pediatric); I10 Essential (primary) hypertension; E66.9 Obesity, unspecified; Z68.29 Body mass index [BMI] 29.0-29.9, adult; Z79.82 Long term (current) use of aspirin; Z79.899 Other long term (current) drug therapy; Z90.89 Acquired absence of other organs; Z98.890 Other specified postprocedural states; Z85.820 Personal history of malignant melanoma of skin; Z83.3 Family history of diabetes mellitus; Z82.49 Family history of ischemic heart disease and other diseases of the circulatory system

== ENCOUNTER → 2016-11-16 | Outpatient (CLI) | payer OTHER ==
[~2016-11-16] MED LIST changes: -ASPI325T39 PO; +ASPI81TA28 PO; +CIPR-255 PO; -CIPROFLOXACIN / D5W 400 MG IV SCH; -FINA5TAB PO; -FLM4 PO; -LACTATED RINGER'S 1000ML 1,000 ML IV SCH
== END | disposition home or self-care (01) ==
LOC: C.LABSPEC 10:29
PROVIDERS: ATTEND Urology
DX: N20.0 Calculus of kidney (principal)

== ENCOUNTER → 2017-11-22 | Outpatient (CLI) | payer OTHER ==
--- NOTE | 2017-11-23 06:31 | PAP/PSG TECHNICIAN REPORT ---
[facility] Soap Boiler Polysomnogram Report Study name: None Report date: 11/23/2017 Study date: 11/22/2017 Referring Physician: Antonieta Paulson M.D. Name: DIAMOND GONZALEZ Interpreting Physician: Phil Strong M.D. Date of : 1950 Soap Boiler: Will Dejesus RPSGT. Sex: Male Age: 67 StudyType: PSG Weight: Height: 67 years, Height 6' 1" BMI: Medications: none listed Patient History PATIENT HAS HISTORY OF SNORING, WITNESSED APNEAS AND KIMMY. HE WAS POSITIVE FOR KIMMY IN 2011 AND WORE CPAP BUT WASN'T ABLE TO TOLERATE IT. HE LATER HAD UPPP SURGERY TO HELP REDUCE APNEA. HE IS HERE TODAY FOR AN EVALUATION OF KIMMY. RM 7 Parameters Monitored NPSG: E1-M2, E2-M1, Fp1-M2, Fp2-M1, F3-M2, F4-M2, F4-M1, C3-M2, C4-M2, C4-M1, O1-M2, O2-M2, O2-M1, T3-M2, T4-M1, P3-M2, P4-M1, CHIN1, CHIN2, HR, EKG, Legs, PFLOW, SNOR, FLOW, CFLOW, Tidal Volume, THOR, ABDO, SpO2, PLTH, CPRESS, ETCO2 Wave, ETCO2, pH Sleep Architecture Sleep Stages Time at Lights Off 9:58:32 PM STAGES Time (min.) TST (%) Time at Lights On 5:35:32 AM Wake 56.0 -- Total Recording Time (TRT) 457.50 min. N1 58.0 14 Total Sleep Period (TSP) 450.5 min. N2 241.5 60 Total Sleep Time (TST) 401.0min. N3 18.5 5 Awake Time 56.5 min. REM 83.0 21 Wake after Sleep Onset 50.5 min. Sleep Efficiency (SE) 88 % Sleep Onset Latency (MARIA TERESA) 5.5 min. Number of Stage 1 Shifts None Awakenings 23 Stage Changes 87 Number of REM periods 3 REM 83.0 21 REM Latency 103.0 min. NREM 318.0 79 Body Position Analysis Supine Right Left Side Prone Vertical Total Sleep Time (min.) 206.8 87.9 155.7 243.54 0.0 0.0 Total Sleep Time (%) 39% 22% 39% 61 0% N/A% Total Sleep Time REM (min.) 0.0 40.5 42.5 None 0.0 0.0 Total Sleep Time NREM (min.) 157.5 47.4 113.2 None 0.0 0.0 Intermittent Wake (min.) 49.4 3.0 3.6 None 0.0 0.0 Total Sleep Period (%) 44% None None None None None Arousals Myoclonus (PLM) * Events Count Index Events Count Index Spontaneous 80 12 Events Awake (PLMW) 27 28.9 Respiratory 19 3.0 Events Asleep w/ Arousal (PLMA) 20 3.0 PLM 19 3 Events Asleep w/o Arousal (PLMS) 206 30.8 Snoring 5 1 Total Asleep 226 33.8 Total 123 18 Total 253 33 Respiratory Analysis * CA OA MA CH H RERA Total Count 0 0 1 0 17 17 18 Index 0.0 0.0 0.1 0 2.5 3 5.2 Mean Duration 0.0 0.0 29.7 0.00 21.3 15.3 18.6 Longest Duration 0.0 0.0 29.7 0.00 29.7 19.0 36.1 Respiratory Event Summary Total Supine ~Supine Right Left Prone REM NREM Apneas Count 1 1 0 0 0 N/A 0 1 Index 0.1 0 0 0.0 0.0 N/A 0 0 Hypopneas (4% Desat) Count 17 12 5 2 3 N/A 4 13 Index 2.5 4.6 1 1.4 1.2 N/A 2.9 2.5 Apneas & All Hypopneas Count 18 13 5 2 3 N/A 4 14 Index 2.7 5 1 1 1 N/A 2.9 2.6 Respiratory Events ([employer]+All Hyp+RERA) Count 18 29 6 2 4 N/A 4 14 Index 5.2 11 1 1.4 1.5 N/A 2.9 5.8 Respiratory Related Arousal Count 19 29 1 0 1 N/A 0 20 Index 3.0 7 0 0 0 N/A 0 4 Snoring Analysis Supine Right Left Prone REM NREM Total Snore duration 3.3 min Snores count 35 12 21 N/A 9 59 68 Snore mean duration 2.9 Sec Snores index 13 8 8 N/A 6.5 11.1 10.2 TST with snoring (%) 0.8% Desaturation Event Summary: Minimum %SpO2 Event Count Mean/Min/Max Duration(sec.) Desaturation Index % Time In Bed > 90 18 40.2 / 11.5 / 60.0 2.5 93.4 86 - 90 1 11.5 / 11.5 / 11.5 2.0 6.6 81 - 85 0 N/A 0.0 0.0 76 - 80 0 N/A 0.0 0.0 71 - 75 0 N/A 0.0 0.0 66 - 70 0 N/A 0.0 0.0 61 - 65 0 N/A 0.0 0.0 56 - 60 0 N/A 0.0 0.0 51 - 55 0 N/A 0.0 0.0 < 50 0 N/A 0.0 0.0 Total REM NREM Awake <50% 0.0 min. 0.0 min. 0.0 min. 0.0 min. 51 - 60% 0.0 min. 0.0 min. 0.0 min. 0.0 min. 61 - 70% 0.0 min. 0.0 min. 0.0 min. 0.0 min. 71 - 80% 0.0 min. 0.0 min. 0.0 min. 0.0 min. 81 - 90% 29.9 min. 11.5 min. 17.5 min. 0.9 min. 91 - 100% 426.3 min. 71.5 min. 300.3 min. 54.6 min. Average 93 92 93 95 Minimum SpO2 88 89 89 88 Desaturation Event Index 2.4 2.9 2.3 2.1 # Desat. Events below 89% 1 N/A 1 0 Time(%) with Saturation below 89% 0.0 0.0 0.0 0.0 Time(min.) with Saturation below 89% 0.1 0.0 0.0 0.1 Time (mins) REM (mins) NREM (mins) % of TST SpO2 Below 90% 7 3 N4 0.5 SpO2 Below 88% 0 0 0 0 Heart Rate Analysis Min (bpm) Max (bpm) Average (bpm) Awake 40 71 49 NREM 37 60 45 REM 33 61 45 Overall 33 61 45 Supplemental O2 Values Minimum O2 level: None Value Start Time End Time Soap Boiler Comments Mr. Gonzalez slept in the right, left and supine positions. PAC's noted. Leg movements noted. No bruxism noted. Snoring was noted and scored as a 1 on a scale of 1 through 5. (0=no snoring, 5=snoring loud enough to be heard through a closed door or down the hui way) Mr. Gonzalez awoke to use the restroom 0 times during the night. Mr. Gonzalez stated I did not sleep as well as I do when I am in my own bed. The final report will be interpreted and signed by a sleep physician. The completed physician report will then be placed in the patient medical record. Therapy (cm H2O) 0 TIB (min.) 457.0 TST (min.) 401.0 Sleep Onset (min.) 5.5 REM Onset From Sleep (min.) 103.0 Sleep Efficiency % 88 Wakefulness (%) 12 Wakefulness (min.) 56.5 NREM 1 (%) 14 NREM 1 (min.) 58.0 NREM 2 (%) 60 NREM 2 (min.) 241.5 NREM 3 (%) 5 NREM 3 (min.) 18.5 REM (%) 21 REM (min.) 83.0 # Arousals 123 Arousal Index 18 # Snore 68 Snore Index 10.2 AHI 2.7 AHI Supine 5 AHI Non-Supine 1 NREM AHI 2.6 REM AHI 2.9 RDI 5.2 # Obstructive Apnea 0 # Central Apnea 0 # Mixed Apnea 1 # Hypopneas 17 RERAs 17 Total Respiratory Events 35 Time Below SpO2 89% (min.) 0.0 Mean NREM SpO2 (%) 93 Mean REM SpO2 (%) 92 Mean Sleep SpO2 (%) 93 Min NREM SpO2 (%) 89 Min REM SpO2 (%) 89 Position Supine (min.) 206.8 Position Non-supine (min.) 243.5 LM Index Sleep 33.8 LM Index NREM 39.8 LM Index REM 10.8 Mean Heart Rate (bpm) 45 Min Heart Rate (bpm) 33
--- NOTE | 2017-11-25 17:20 | POLYSOMNOGRAPH REPORT ---
CLINICAL DATA: A 67-year-old male referred by Dr. Paulson with a previous history of sleep apnea in 2012. He was intolerant of CPAP. He had a UPPP procedure done and he is here for an evaluation. SLEEP ARCHITECTURE: Total sleep period was 450.5 minutes. Total sleep time was 401 minutes divided between 318 minutes of non-REM sleep and 83 minutes of REM sleep. Sleep latency was 5.5 minutes. REM latency was 103 minutes. Sleep efficiency was 88%. Wake after sleep onset was 50.5 minutes. Sleep consisted of stage N1 14%, stage N2 60%, stage N3 5%, and REM 21%. AROUSAL DATA: 123 arousals were recorded for an index of 18 per hour. 80 were spontaneous. PERIODIC LIMB MOVEMENTS DATA: Moderately elevated limb movements during sleep were noted. There were 226 limb movements during sleep noted for an index of 33.8 per hour with arousal index of 3 per hour. RESPIRATORY DATA: There was no evidence of clinically significant sleep apnea seen. The AHI was 2.7. The RDI was 5. There was 1 mixed apneic episode, 29.7 seconds in duration. There were 17 hypopneic episodes with a mean duration of 21.3 seconds. There were 17 RERAs, with the longest RERA being 19 seconds. OXIMETRY DATA: No hypoxemia was seen. Oxygen sara was 89%. Mean saturation was 93%. EKG: Heart rates ranged from 37 to 61 beats per minute. PACs were noted. LADLER'S COMMENTS: The patient slept in the left, right, and supine positions. Snoring was mild, rated 1 on a scale of 1-5. IMPRESSION: No evidence of clinically significant sleep apnea/hypopnea or nocturnal hypoxemia. The patient did have mildly to moderately elevated limb movements during sleep. When compared to his previous sleep study showing an RDI of 42.8, there has been significant improvement. RECOMMENDATIONS: Patient should continue to practice good sleep hygiene. There is no evidence of need for CPAP or an oral appliance based on this study. [facility]
--- NOTE | 2017-11-30 12:50 | CODING QUERY NO DIAGNOSIS ---
TREATMENT RENDERED WITHOUT A DIAGNOSIS To promote full compliance with coding requirements relating to patient care, physician participation is requested in all cases of political director uncertainty. Please assist us with providing a diagnosis/symptom for the test(s) below: A diagnosis/symptom was not documented on your Order. A valid diagnosis/symptom is required to bill all insurances. Please remember that we are unable to code a diagnosis of rule out, probable, possible, questionable, or suspected. Tests that require a diagnosis: DOS: 11/22/17 (Attached order is missing diagnosis) * Sleep Study DIAGNOSIS: Provider Signature: Date: Thank you Al[facility] Information Management Once completed, please kindly fax back to [phone] For questions please call [phone]
== END | disposition home or self-care (01) ==
LOC: C.NEUR 21:00
PROVIDERS: ATTEND Otolaryngology
DX: G47.33 Obstructive sleep apnea (adult) (pediatric) (principal)